=== PATIENT | female | born 1965 | race Caucasian/White ===

== ENCOUNTER 2019-01-20 11:08 | Outpatient (CLI) | payer BC ==
--- NOTE | 2019-01-20 12:26 | BD ---
Exam: DEXA Bone Density Date: 01-20-19 Provided Clinical History: Screening Lumbar Spine: BMD (g/cm2) L1 1.237 T-Score: 2.2 3.0 L2 1.287 T-Score: 2.4 3.2 L3 1.212 T-Score: 3.1 2.9 L4 1.362 T-Score: 2.7 3.6 L1-L4 1.306 T-Score: 2.4 3.2 Femoral Neck: .912 T-Score: .6 1.4 Total Femur: 1.055 T-Score: .9 1.4 Impression: Calculated bone mineral density meets WHO criteria for normal. POS: [facility]
== END 2019-01-20 11:09 | disposition home or self-care (01) ==
LOC: BICMAMMO 11:08
PROVIDERS: ATTEND Obstetrics & Gynecology
DX: Z12.31 Encounter for screening mammogram for malignant neoplasm of breast (principal); Z13.820 Encounter for screening for osteoporosis; M85.80 Other specified disorders of bone density and structure, unspecified site; M81.0 Age-related osteoporosis without current pathological fracture; Z79.890 Hormone replacement therapy; N63.11 Unspecified lump in the right breast, upper outer quadrant; Z80.3 Family history of malignant neoplasm of breast
CPT/HCPCS: 77063; 77067; 77080

== ENCOUNTER 2021-03-19 15:02 | Outpatient (CLI) | payer BC | END 2021-03-19 15:03 | disposition home or self-care (01) | LOC: BICMAMMO 15:02 | PROVIDERS: ATTEND Obstetrics & Gynecology | DX: Z12.31 Encounter for screening mammogram for malignant neoplasm of breast (principal); M81.0 Age-related osteoporosis without current pathological fracture; M85.80 Other specified disorders of bone density and structure, unspecified site; Z79.890 Hormone replacement therapy | CPT/HCPCS: 77063; 77067; 77080 ==